=== PATIENT | male | born 1950 | race Caucasian/White ===

== ENCOUNTER → 2020-02-08 | Outpatient (CLI) | payer MEDICARE, OTHER | LOC: M.MRI 08:29 | DX: S83.282A Other tear of lateral meniscus, current injury, left knee, initial encounter (principal); M65.9 Synovitis and tenosynovitis, unspecified; M17.12 Unilateral primary osteoarthritis, left knee; M25.462 Effusion, left knee; X58.XXXA Exposure to other specified factors, initial encounter; Y93.89 Activity, other specified; Y92.89 Other specified places as the place of occurrence of the external cause; Y99.8 Other external cause status ==

== ENCOUNTER 2020-03-08 06:50 | Inpatient (IN) | payer MEDICARE, OTHER ==
[2020-03-01 10:34] LABS: URINE BILIRUBIN NEGATIVE (Negative); URINE BLOOD NEGATIVE (Negative); URINE CLARITY CLEAR; URINE COLOR YELLOW; URINE GLUCOSE-RANDOM NEGATIVE (Negative); URINE KETONES NEGATIVE (Negative); URINE LEUKOCYTES-REFLEX NEGATIVE (Negative); URINE NITRITE-REFLEX NEGATIVE (Negative); URINE PROTEIN NEGATIVE (Negative); URINE SPECIFIC GRAVITY >= 1.030 (1.005-1.030); URINE UROBILINOGEN 0.2 E.U./dl (0.2-1.0)
[2020-03-01 10:36] LABS: HEMATOCRIT 43.8 % (42.0-52.0); HEMOGLOBIN 15.1 gm/dL (14.0-18.0); MCH 32.5 pg (26.0-34.0); MCHC 34.4 g/dL (28.0-37.0); MCV 94.3 fL (80.0-100.0); MPV 7.7 fl. (7.2-11.1); RBC 4.65 mil/uL (4.50-6.00); RDW-CV 13.2 % (10.5-14.5)
[2020-03-01 10:46] LABS: PROTIME 10.5 Seconds (9.20-11.50)
[2020-03-01 10:49] LABS: ALBUMIN 4.2 g/dL (3.4-5.0); CALCIUM 9.3 mg/dL (8.5-10.1); CREATININE 1.2 mg/dL (0.6-1.3); POTASSIUM 4.3 mmol/L (3.5-5.1); TOTAL BILIRUBIN 0.4 mg/dL (<0.1-1.0); TOTAL PROTEIN 8.8 g/dL (6.4-8.2)
--- NOTE | 2020-03-01 13:33 | EKG ---
[place] [address] ELECTROCARDIOGRAM REPORT Name: SUNNY ALCANTARA Room: PRE IN [facility]#: [id number] Admission: Attend Phys: Sunny Amaral Discharge: Date of : 52 Date of Service: 03/01/20 1013 Report #: [id number] THIS REPORT FOR: //name// [facility] Test Date: 2020-03-01 Test Time: 10:13:17 Pat Name: SUNNY ALCANTARA Department: Room: Gender: Promotional Representative: : 1950 Requested By: Ketan Hicks Order Number: [id number] Sunita MD: Albino Tapia Measurements Intervals [place] Rate: 64 P: -9 [place]: 208 QRS: 59 QRSD: 107 T: -1 QT: 391 QTc: 404 Interpretive Statements Sinus rhythm Nonspecific T wave flattening, inferior leads No previous ECG available for comparison Electronically Signed On 03-01-2020 13:31:02 CDT by Albino Tapia [email or web address] <ELECTRONICALLY SIGNED> By: Albino Tapia MD, [facility] 03/01/20 1331 1013 1013 Albino Tapia MD, FACC /EPI
[~2020-03-08] VITALS: Ht 182.9 cm; Wt 140.2 kg
[~2020-03-08 06:50] MED LIST: CELEXA20 MG PO; CHLORTHALIDONE25 MG PO; COZAAR100 MG PO; GLUCOPHAGE1000 MG PO; LIPITOR10 MG PO
[2020-03-08 08:30] VITALS: BP 152/70
[2020-03-08] MEDS ORDERED: ACETAMINOPHEN500 M1 PO (09:02)
[2020-03-08 16:00] VITALS: BP 156/70
[2020-03-08 17:11] VITALS: BP 146/81
[2020-03-09] VITALS: BP 133/64
[2020-03-09 04:00] VITALS: BP 126/64
[2020-03-09 04:01] LABS: HEMATOCRIT 40.8 % (42.0-52.0); HEMOGLOBIN 13.8 gm/dL (14.0-18.0)
--- NOTE | 2020-03-09 06:55 | NUR ---
PATIENT HAS SLEPT OFF AND ON DURING THE NIGHT. VSS ON 4L 02 VIA NASAL CANNULA. MEDICATIONS GIVEN ORDERED AND CHARTED. DRESSING TO LEFT KNEE IS C/D/I, AND VON HOSE AND SCD'S IN PLACE. HEMOVAC IN PLACE WITH MODERATE AMOUNT OF SANGUINEOUS DRAINAGE. PATIENT USING BEDSIDE URINAL DURING THE NIGHT. PATIENT ON CPM THIS AM AND TOLERATING WELL. IV IN LEFT HAND-SL. IV ABT GIVEN WITHOUT ANY ADVERSE SIDE EFFECTS NOTED. PATIENT INSTRUCTED TO USE CALL LIGHT WHEN NEEDING ASSISTANCE. HOURLY ROUNDS MADE. WILL CONTINUE WITH PLAN OF CARE AND NURSING TO MONITOR.
[2020-03-09 08:12] VITALS: BP 121/73
--- NOTE | 2020-03-09 10:46 | OP ---
[facility] [address] [place] [address] OPERATIVE REPORT Name: VIRGINIA ALCANTARA Room: [address] IN .R.#: [id number] Admission: 03/08/20 Attend Phys: Rashi Macias Discharge: Date of : 52 Report #: [id number] THIS REPORT FOR: //name// cc: STANTON AMAYA MD, JESSE MD ~ THIS REPORT FOR: //name// CC: STANTON Amaral DATE OF SERVICE: 03/08/2020 PREOPERATIVE DIAGNOSIS: Left knee osteoarthritis. POSTOPERATIVE DIAGNOSIS: Left knee osteoarthritis. PROCEDURE: Left total knee arthroplasty. SURGEON: Ketan Hicks II, DO ASSOCIATE PROFESSOR OF ENGLISH: JANICE Pickett. ANESTHESIA: General endotracheal. ESTIMATED BLOOD LOSS: 50 mL. ANTIBIOTICS: Ancef preoperatively. DRAINS: Medium Hemovac. COMPLICATIONS: None. CONDITION OF THE PATIENT: Stable to recovery room. IMPLANTS: Listed in operative record and progress note. BRIEF HISTORY: The patient was seen in the preoperative area. Preoperative H and P was performed. Site was marked, questions were answered. Risks and benefits were discussed with the patient in detail with about surgery. The patient wished to proceed, assuming all risks. DESCRIPTION OF PROCEDURE: The patient was taken to the operative suite and placed supine on the operating table, given appropriate anesthesia. A well-padded tourniquet was applied to upper thigh, which was inflated to 300 mmHg after gravity exsanguination. The operative knee was sterilely prepped and [facility] [address] [place] [address] OPERATIVE REPORT Name: VIRGINIA ALCANTARA Room: [address] IN .R.#: [id number] Admission: 03/08/20 Attend Phys: Rashi Macias Discharge: Date of : 52 Report #: [id number] draped. Surgery began by midline incision. This was carried down to the subcutaneous tissues. A medial parapatellar arthrotomy was performed and carried down to bone. The patella was then everted and excess soft tissues were removed from around the femur. Femoral cutting block was then applied, checked with drop jagjit for rotational alignment, pinned in appropriate position and appropriate cuts were made. A 4-in-1 cutting block was then applied, checked for rotational alignment, pinned in appropriate position and appropriate cuts were made. The tibia was then exposed. Excess meniscus was removed. Retractor was placed along the collateral ligaments. The tibial cutting block was then applied, pinned in appropriate position, checked with a drop jagjit for rotational alignment and slope and appropriate cut was made. The tibial bone was removed. Tibial base plate was then applied, checked for rotational alignment with the drop jagjit and pinned in appropriate position. The femur was then applied and box cut was reamed. This was then trialed with appropriate spacer, which showed excellent fit and fill and excellent stability of the knee throughout all range of motion. The patella was reamed in appropriate fashion and sized to appropriate size. Three peg holes were drilled and it was then trialed and showed excellent flexion, extension, excellent tracking of the patella within the groove. These trials were then removed. The tibia was punched in appropriate fashion. Bone ends were cleansed with Pulsavac irrigation and cement was mixed and applied to final implants. These were then malleted into position and held the knee in extension and compressed to allow cement to cure. After it cured, excess was removed using a [place] and osteotome. Wound was then copiously irrigated and the final spacer was then malleted into position. The tourniquet was deflated. Hemostasis was obtained with electrocautery. Pain cocktail was injected. PRP gel was sprayed throughout the internal aspects of the knee. Medium Hemovac drain was applied. The capsule was closed with #2 FiberWire and #1 Vicryl in [id number] fashion. Skin was closed with 2-0 Vicryl and running 3-0 Monocryl. Dermabond and sterile dressing applied. Livan wrap and PolarCare applied. The patient transported to recovery room in stable condition. Counts were correct throughout the procedure. <ELECTRONICALLY SIGNED> By: Ketan Hicks II, 03/09/20 1046 [id number] Hicks II DO /nt
[2020-03-09 12:00] VITALS: BP 128/66
[2020-03-09 16:00] VITALS: BP 135/67
--- NOTE | 2020-03-09 16:46 | NUR ---
PT A&Ox4. VITALS STABLE. DRESSING C/D/I. IV OUT, DR DUNN. PAIN CONTROLLED WITH NORCO. DENIED NAUSEA. TOLERATING MEALS. UP WITH 1. PENDING DISCHARGE FOR TOMORROW THERAPY. FALL PRECAUTIONS IN PLACE. CALL LIGHT WITHIN REACH. WILL CONTINUE TO MONITOR.
--- NOTE | 2020-03-09 17:00 | NUR ---
MET WITH PT. HE WAS ALERT AND ORIENTED. STATED HIS WILL BE WITH HIM ALL THE TIME AT HOME. HE HAS A FRONT WHEEL WALKER IN ROOM FROM HOME. HE IS NORMALLY INDEPENDENT. HE PLANS TO COME TO [facility].THERAPY AT DISCHARGE. CM WILL ARRANGE. CM WILL ALSO CALL IN PRESCRIPTION WRITTEN TO [facility] TO CHECK COPAY. WILL MEET WITH PT.AGAIN IN AM PRIOR TO DISCHARGE.
[2020-03-09 20:00] VITALS: BP 144/51
[2020-03-10] VITALS: BP 132/65
[2020-03-10 04:00] VITALS: BP 131/67
[2020-03-10 04:16] LABS: HEMOGLOBIN 12.5 gm/dL (14.0-18.0)
--- NOTE | 2020-03-10 06:43 | NUR ---
Alert and oriented x 4. L knee dressing is dry and intact with polarcare in place. He was in the CPM last evening and is in it right now, he could possibly turn it up to -5 to 65. He has had oral pain meds x 4 this shift. He had milk of mag last evening and did have a BM this am. He is up with stand by assist to the bathroom with gaitbelt and walker. He did sleep well.
[2020-03-10 08:00] VITALS: BP 140/80
[2020-03-10] MEDS ORDERED: PERCOCET 5-3251 EACH PO (12:01)
[2020-03-10 12:02] VITALS: BP 140/80
[2020-03-10] MEDS ORDERED: ECPIRIN325 MG PO (13:54)
--- NOTE | 2020-03-10 14:01 | NUR ---
COPAY FOR KENDRICK CALLED INTO [facility] WAS $180. DISCUSSED WITH PT. HE SAID HE WOULD LIKE TO TAKE SOMETHING DIFFERENT. BLAIRERN NOTIFIED. ALSO DISCUSSED HOME HEALTH FOR FIRST 2 WEEKS THEN OUTPT.THERAPY. HE WAS AGREEABLE AND CHOSE [facility]. FAXED REFERRAL INFORMATION TO [facility]. PT.READY FOR DISCHARGE PER P.T.
--- NOTE | 2020-03-10 15:04 | NUR ---
ASSUMED CARE OF PATIENT AT APPROX 0730. ALERT AND ORIENTED X4. ASSESSMENT COMPLETED AND CHARTED. VSS ON ROOM AIR. PAIN MANAGED WITH ORAL OXY IR AND PERCOCET. PATIENT UP WITH GAIT BELT AND WALKER, WORKED WITH THERAPIES AND PROGRESSED TOWARD GOALS. PATIENT DISCHARGED AT 1450 WITH ALL PERSONAL BELONGINGS, PRESCRIPTIONS AND DISCHARGE INFORMATION.
== END 2020-03-10 14:50 | disposition home health service (06) | DRG 470 ==
LOC: M.PRE 06:50 → M.ORTHSURG 08:39 → M.TBA 08:39 → M.PRE 09:11 → M.ORTHSURG 14:34
PROVIDERS: Orthopaedic Surgery; ADMIT Internal Medicine; ATTEND Internal Medicine
PROC: 0SRD0J9 Replacement of Left Knee Joint with Synthetic Substitute, Cemented, Open Approach (ICD-10-PCS; principal; 2020-03-08)
DX: M17.12 Unilateral primary osteoarthritis, left knee (principal); E11.9 Type 2 diabetes mellitus without complications; I10 Essential (primary) hypertension; F32.9 Major depressive disorder, single episode, unspecified; F41.9 Anxiety disorder, unspecified; E78.5 Hyperlipidemia, unspecified; Z79.899 Other long term (current) drug therapy; Z88.8 Allergy status to other drugs, medicaments and biological substances; Z03.818 Encounter for observation for suspected exposure to other biological agents ruled out